=== PATIENT | male | born 1990 | race African-American/Black ===

== ENCOUNTER 2018-06-12 12:09 | Emergency (ER) | payer MEDICAID ==
[~2018-06-12] VITALS: Ht 188 cm; Wt 100.0 kg
[~2018-06-12 12:09] MED LIST: NOCURR
[2018-06-12 14:32] VITALS: BP 108/69
[2018-06-12] MEDS ORDERED: IBUPROFEN 600 MG TABLET PO ONE (14:45)
== END 2018-06-12 15:53 | disposition home or self-care (01) ==
LOC: EMS 12:12
DX: M54.5 Low back pain (principal); V49.9XXA Car occupant (driver) (passenger) injured in unspecified traffic accident, initial encounter; Y93.89 Activity, other specified; Y92.488 Other paved roadways as the place of occurrence of the external cause; Y99.8 Other external cause status